=== PATIENT | male | born 1970 | race Caucasian/White ===

== ENCOUNTER 2016-09-23 11:20 | Observation (INO) ==
[2016-09-23] MEDS ORDERED: ASPIRIN 325 MG TABLET PO STA (11:46)
[2016-09-23] MEDS ORDERED: ENOXAPARIN 100 MG/ML SYRINGE SUBCUT STA (11:46)
[2016-09-23] MEDS ORDERED: ONDANSETRON 4 MG/2 ML VIAL IV PRN ×2 (11:46→14:45)
[2016-09-23] MEDS ORDERED: MORPHINE 2 MG/1 ML SYRINGE IV PRN (11:46)
--- NOTE | 2016-09-23 11:50 | EKG Report ---
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
[2016-09-23] MEDS ORDERED: ASPIRIN 325 MG TABLET ONE (11:55)
[2016-09-23] MEDS ORDERED: ENOXAPARIN 100 MG/ML SYRINGE SUBCUT ONE (11:55)
[2016-09-23] MEDS ORDERED: MORPHINE 2 MG/1 ML SYRINGE ONE (11:55)
[2016-09-23] MEDS ORDERED: ONDANSETRON 4 MG/2 ML VIAL ONE (11:55)
--- NOTE | 2016-09-23 11:57 | Emergency Department Note ---
Marino Fay Brooke, am scribing for, and in the presence of, Nas Gómez MD 11:55 . Dalia Fay James D, MD, personally performed the services described in this documentation, ascribed by Jessika Pichardo in my presence, and it is both accurate and complete . Arrival - Arrival Chief Complaint: Chest Pain Stated Complaint: chest pain ED Nursing Triage Note: Onset of chest pain 4-6 weeks ago. Pain increased this morning. +Nausea. CABG at age 33. Pain is worse on exertion and bending over. Mode of Arrival: Ambulatory Limitations: No Limitations Source: Patient, RN Notes Reviewed Time Seen by Provider: 09/23/16 11:46 - History of Present Illness HPI Narrative: Patient is a 45 year old male who presents to the ED with c/o intermittent chest pain that started about six weeks ago. Patient says the pain is located on the left side of his chest and he describes it as throbbing. Patient says he notices it when bending over but states after walking from the car to the ED, today, he had the throbbing pain. Patient denies any SOB, diaphoresis, nausea, melena, or leg edema. Patient had a bypass at age 33. He says then, his pain was located in the center of his chest and he had SOB and left arm numbness with it. He denies today's pain being anything like the pain that he had before his bypass. Patient says he has not seen a Applications Scientist in the last [address] Story was his Applications Scientist and Dr. Salas done his bypass. Patient says he took an ASA this morning. He has PMHx of dyslipidemia and NIDDM. Patient is not a smoker. Onset (ago): week(s) (6) Allergies/Adverse Reactions: Allergies Allergy/AdvReac Type Severity Reaction Status Date / Time No Known Allergies Allergy Unverified 09/23/16 11:36 Home Medications: Home Medications Medication Instructions Recorded Confirmed Type Albiglutide [Tanzeum] 30 mg SUBCUT SA 09/23/16 09/23/16 History Aspirin [Ecotrin] 325 mg PO DAILY 09/23/16 09/23/16 History Insulin Glargine,Hum.rec.anlog 300 unit SUBCUT BID 09/23/16 09/23/16 History [Toric Abrams] Levothyroxine Tab [Synthroid Tab] 50 mcg PO DAILY 09/23/16 09/23/16 History Metformin HCl 1,000 mg PO BID 09/23/16 09/23/16 History Multivitamin (Centrum) [Centrum 1 tablet PO DAILY 09/23/16 09/23/16 History Tab] [place]-3S/Dha/Epa/Fish Oil [Fish 1 each PO DAILY 09/23/16 09/23/16 History Oil 1,200 mg Softgel] Rosuvastatin Calcium [Crestor] 40 mg PO DAILY 09/23/16 09/23/16 History Review of System - Review of System 12 point system: reviewed and no additional remarkable complaints except as stated - Review of System Constitutional: Absent: diaphoresis, fever Respiratory: Absent: respiratory distress Cardiovascular: Present: chest pain (left side- throbbing) Skin: Absent: rash Neurological: Absent: numbness Medical,Surgical,& Family Hx - Medical History Endocrine: History of: Diabetes Mellitus (NIDDM) - Surgical History Cardiac Surgeries: Sugical HX of: Femoral-Popliteal Bypass Graft - Social History Smoking Status: Unknown if ever smoked Frequency of Alcohol Use: Unknown Type of Drug Use: Unknown Exam Vital Signs: Vital Signs Temperature 98.1 F 09/23/16 11:43 Pulse Rate 83 09/23/16 11:43 Respiratory Rate 20 09/23/16 11:43 Blood Pressure 116/86 09/23/16 11:43 O2 Sat by Pulse Oximetry 98 09/23/16 11:43 GENERAL: This is a well-nourished well-developed white male in no apparent distress. VITAL SIGNS: Reviewed HEENT: Head is atraumatic and normocephalic. Pupils are equal round react to light. Extraocular movements are intact. Oropharynx is benign with moist mucous membranes. NECK: Neck is soft and supple without tenderness. There are no masses. There is no lymphadenopathy. LUNGS: Lungs are clear to auscultation. Chest rises symmetrically. There is no chest wall tenderness. CV: Heart is regular rate and rhythm without murmurs rubs or gallops. ABDOMEN: Abdomen is soft, nontender to palpation. There are no abdominal abnormal masses palpated. There is no organomegaly. Bowel sounds are present and active. SKIN: Skin is warm and dry. No rash. EXTREMITIES: Patient has full range of motion without tenderness. There is no pedal edema. NEUROLOGIC: Awake alert and oriented 4. Cranial nerves II through XII are grossly intact. Motor is 5 over 5 in all extremities bilaterally. Course - Consultations Consultation #1: Discussed with cardiology. Patient will be admitted to their service. Time: 12:51 Results - Labs CBC & BMP: 09/23/16 11:58 09/23/16 11:58 Lab Results: I have reviewed the patients labs Labs: Laboratory Tests 09/23/16 11:58 Troponin I < 0.015 - EKG EKG results: interpreted by ERMD - Impressions EKG: Normal sinus rhythm with a rate of 84, incomplete right bundle branch block , nonspecific ST-T wave changes, normal axis per - Diagnostic Findings Procedure: Chest x-ray: image reviewed by me (Old median sternotomy, no cardiomegaly, no pleural effusions, no infiltrates.) Disposition Clinical Impression: Chest pain, Coronary artery disease, Diabetes mellitus, Hyperlipidemia Case discussed with: patient, patient's family Disposition: Still a Patient Condition: Stable
[2016-09-23 12:11] LABS: Basophils % 0.6 % (0.0-0.8); Eosinophils # 0.1 10*3/uL (0.0-0.87); Eosinophils % 1.5 % (0.00-10.9); Hemoglobin 13.9 GM/DL (14.0-18.0); Immature Granulocytes % 0.2 %; Immature Granulocytes Absolute 0.01 #; Lymphocytes # 1.4 10*3/uL (1.4-4.0); Lymphocytes % 30.5 % (21.2-54.2); Mean Corpuscular HGB Conc 33.1 GM/DL (32-36); Mean Corpuscular Hemoglobin 29 PG (27-34); Mean Platelet Volume 10.1 FL (9.6-12.0); Monocytes # 0.5 10*3/uL (0.11-0.8); Monocytes % 10.2 % (1.7-12.7); Neutrophils # 2.7 10*3/uL (1.4-7.4); Red Blood Count 4.83 MC/CUMM (3.8-5.5); White Blood Count 4.7 T/CUMM (4-12)
[2016-09-23 12:15] LABS: Platelet Count 97 T/CUMM (130-400)
[2016-09-23 12:17] LABS: Apearance,Urine Hazy (Clear); Bilirubin,Urine Negative (Negative); Blood, Urine NEGATIVE (Negative); Calcium Oxalate Crystals,Urine Occasional /HPF (Few); Glucose,Urine (UA) 500 mg/dL (Negative); Hyaline Casts,Urine 16 /LPF (0-3); Ketones,Urine Negative (Negative); Mucus,Urine Moderate /LPF (Occasional); Nitrite,Urine Negative (Negative); Protein,Urine 30 MG/DL; RBC,Urine 1 /HPF (0-4); Squamous Epithelial Cell,Urine Occasional /HPF (0-10); Urine Color Amber (Yellow); Urine Urobilinogen 0.2 EU/DL (0.2-1.0); WBC,Urine 2 /HPF (0-6)
[2016-09-23 12:24] LABS: Barbiturates Screen,Urine Negative (Negative); Benzodiazepines Screen,Urine Negative (Negative); Cannabinoid Screen,Urine Negative (Negative); Opiate Screen,Urine Negative (Negative); Phencyclidine Screen,Urine Negative (Negative)
[2016-09-23 12:24] LABS: INR 1.1; PT Patient Result 11.8 SECS
[2016-09-23 12:34] LABS: Platelet Estimate Decreased
[2016-09-23 12:43] LABS: Albumin 3.9 G/DL (3.4-5.0); Bilirubin,Total 0.4 MG/DL (0.2-1.0); Calcium 9.1 MG/DL (8.5-10.1); Potassium 3.8 MMOL/L (3.5-5.1); Total Protein 7.2 G/DL (6.4-8.3)
--- NOTE | 2016-09-23 13:16 | XRay Report ---
History: Chest pain Date: 09/23/2016 Study: Chest x-ray PA and lateral Comparison exam: No previous available The cardiac silhouette is not enlarged. There is no mediastinal mass. The patient is status post prior median sternotomy. Pulmonary vasculature is not engorged. The lungs and pleural spaces are clear. There is mild thoracic spondylosis. Impression: No acute cardiopulmonary process. Previous median sternotomy PROCEDURE INTERPRETED AT [facility] DEPARTMENT OF RADIOLOGY Final Report Signed by: Dr. Janine Bonilla
[2016-09-23] MEDS ORDERED: MAGNESIUM SULF RIDER 2 GM in PREMIX 1 EACH IV PRN (14:45)
[2016-09-23] MEDS ORDERED: ACETAMINOPHEN 325 MG TABLET PO PRN (14:45)
[2016-09-23] MEDS ORDERED: MAGNESIUM SULF RIDER 4 GM in PREMIX 1 EACH IV PRN (14:45)
[2016-09-23] MEDS ORDERED: ZALEPLON 5 MG CAPSULE PO PRN (14:45)
--- NOTE | 2016-09-23 15:41 | Cardiology History & Physical ---
Ntio Fay Rachel RN, am scribing for, and in the presence of, Sincere Story MD 15:41. Assessment and Plan - Time spent with patient Time spent with patient: Greater than 30 minutes (1) Chest pain Status: Acute Assessment and plan: Patient has history of known CAD with CABG approximately 12 years ago. Troponin has been negative times one and EKG revels no acute findings. Will admit to tele and continue to monitor troponin and EKG. If these remain stable will plan for cardiac stress test in the morning. If troponin bumps for EKG changes are noted, will opt for left heart cath. Will order echo. Current Visit: Yes (2) Coronary artery disease Status: Chronic Current Visit: Yes (3) Diabetes mellitus Status: Chronic Assessment and plan: Will resume home medications. Current Visit: Yes (4) Hyperlipidemia Status: Chronic Assessment and plan: Will check lipid panel. Current Visit: Yes History of Present Illness Chief complaint: Chest pain History of present illness: Mr. Blake is a 45 year old male with known coronary artery disease presented to [facility] for further evaluation of chest pain. He has been seen by Dr. Story in the remote past. He underwent heart catheterization by Dr. Story approximately 13 years ago it was noted to have severe coronary artery disease and CABG was recommended. He underwent CABG with Dr. Salas. Unfortunately, he has not followed up after discharge and has not seen cardiology in 13 years. He has cardiac risk factors significant for known coronary artery disease, diabetes, hyperlipidemia, obesity and sedentary lifestyle. He has a past medical history of hypothyroidism. Patient was in his usual state of health until approximately 1 month ago when he began to experience inner minute moderate nonradiating chest pain. He describes this pain as a sharp, throbbing pain located in his left upper chest. He tells me that this last anywhere from a few minutes to 1-2 hours. The symptoms seem to wax and wane. Patient denies shortness of breath, nausea, orthopnea, lower extremity swelling and palpitations/heart racing. He reports he 's had a cough for several weeks and was treated for sinusitis by his primary physician and this is improving. He also has been digging out side and thought maybe he strained something in his chest. Sometimes, the pain seems worse when he is up doing things, and other times it is worse when he bends over. However , sometimes it can happen spontaneously. This pain presents differently than the pain that he had before undergoing CABG. He denies fever, chills, chest pain that worsens with deep breath, orthopnea, PND, palpitations, dizziness, abdominal pain, nausea and melena. Patient was seen and examined in the ER. Patient is sitting in bed in no acute distress. Troponin has been negative times one. EKG does not reveal any acute findings. Will continue to monitor EKG and troponin. Patient is currently chest pain free. We will admit the patient and monitor on tele. Echo has been ordered. Home Medications Medication Instructions Recorded Confirmed Type Albiglutide [Tanzeum] 30 mg SUBCUT SA 09/23/16 09/23/16 History Aspirin [Ecotrin] 325 mg PO DAILY 09/23/16 09/23/16 History Insulin Glargine,Hum.rec.anlog 300 unit SUBCUT BID 09/23/16 09/23/16 History [Toujeo SoloStar] Levothyroxine Tab [Synthroid Tab] 50 mcg PO DAILY 09/23/16 09/23/16 History Metformin HCl 1,000 mg PO BID 09/23/16 09/23/16 History Multivitamin (Centrum) [Centrum 1 tablet PO DAILY 09/23/16 09/23/16 History Tab] [place]-3S/Dha/Epa/Fish Oil [Fish 1 each PO DAILY 09/23/16 09/23/16 History Oil 1,200 mg Softgel] Rosuvastatin Calcium [Crestor] 40 mg PO DAILY 09/23/16 09/23/16 History Allergies Allergy/AdvReac Type Severity Reaction Status Date / Time No Known Allergies Allergy Unverified 09/23/16 11:36 12 point system: reviewed and no additional remarkable complaints except as stated - Constitutional Constitutional: Absent: chills, fatigue, fever(s), headache(s), weakness, weight gain, weight loss - Cardiovascular Cardiovascular: Present: as per HPI. Absent: claudication, diaphoresis, dyspnea , dyspnea on exertion, edema, radiating jaw, neck or arm pain, lightheadedness, orthopnea, palpitations, PND - Respiratory Respiratory: Present: cough. Absent: dyspnea, hemoptysis, dyspnea on exertion, wheezing, snoring, pain on inspiration, change in phlegm color - Gastrointestinal Gastrointestinal: Present: vomiting. Absent: abdominal pain, change in bowel habits, coffee ground emesis, constipation, diarrhea, hematemesis, hematochezia , loose stools, melena, nausea - Neurological Neurological: Absent: dizziness, frequent falls, headache(s), syncope Medical,Surgical,& Family Hx - Medical History Cardio: History of: CAD Endocrine: History of: Diabetes Mellitus (NIDDM), Dyslipidemia - Surgical History Cardiac Surgeries: Sugical HX of: Femoral-Popliteal Bypass Graft, Cardiac Catheterization, Cardiac Surgery (CABG) - Social History Smoking Status: Unknown if ever smoked Frequency of Alcohol Use: Unknown Type of Drug Use: Unknown Cardiology Physical Exam - Constitutional Vitals: Vital Signs Temp Pulse Resp BP Pulse Ox 98.1 F 78 20 115/69 99 09/23/16 11:43 09/23/16 13:30 09/23/16 13:30 09/23/16 13:30 09/23/16 13:30 Intake and Output 09/22/16 09/23/16 09/23/16 22:59 06:59 14:59 Other: Weight 210 lb Patient Weight 09/24/16 06:59 Weight 210 lb Exam: General: Appears well developed, well nourished, no apparent distress HEENT: Normocephalic, atraumatic Neck: Supple Neck, Midline Trachea, No Bruit, No JVD Cardiac: Reg Rate and Rhythm, No Murmur, no gallop, no rub Lungs: Clear to auscultation, No Wheeze, Rales, Rhonchi Neuro: Cranial Nerve 2-12 Intact, Motor Function Grossly Intact Abdomen: Soft, Active Bowel Sounds, No Masses, No Pulsations/Bruits Skin: Normal color, no rash Extremities: No Clubbing, No Cyanosis, No Edema, Normal Upper Extr. Pulses Musculoskeletal: No acute abnormality noted Psychiatric: The patient does not appear to be anxious or depressed Result/EKG - Labs CBC & BMP: 09/23/16 11:58 09/23/16 11:58 Lab Results: I have reviewed the past 24 hour labs Labs: Laboratory Results - last 24 hr 09/23/16 09/23/16 09/23/16 11:58 11:58 11:58 WBC 4.7 RBC 4.83 Hgb 13.9 L Hct 42.0 MCV 87.0 MCH 29 MCHC 33.1 RDW 13.0 Plt Count 97 L MPV 10.1 Neut % (Auto) 57.0 Lymph % (Auto) 30.5 [place] % (Auto) 10.2 Eos % (Auto) 1.5 Baso % (Auto) 0.6 Neut # (Auto) 2.7 Lymph # (Auto) 1.4 [place] # (Auto) 0.5 Eos # (Auto) 0.1 Baso # (Auto) 0.0 Immature Gran % 0.2 Nucleated RBC % 0.0 Immature Gran # 0.01 Nucleated RBCs # 0.00 Platelet Estimate Decreased Morphology Comment INR 1.1 PT Patient/Control Mix 11.8 Circ Anticoag PTT Sodium 143 Potassium 3.8 Chloride 107 Carbon Dioxide 23 Anion Gap 16.8 H BUN 17 Creatinine 0.90 GFR Calculation 124 BUN/Creatinine Ratio 18.00 Glucose 188 H Calculated Osmolality 291.0 Calcium 9.1 Total Bilirubin 0.40 AST 25 ALT 49 Alkaline Phosphatase 91 Troponin I Total Protein 7.2 Albumin 3.9 Globulin 3.3 Albumin/Globulin Ratio 1.1 Urine Color Urine Appearance Urine pH Ur Specific [place] Urine Protein Urine Glucose (UA) Urine Ketones Urine Blood Urine Nitrate Urine Bilirubin Urine Urobilinogen Urine Leukocytes Urine RBC Urine WBC Ur Squamous Epith Cells Calcium Oxalate Crystal Hyaline Casts Urine Mucus Ur Culture Indicated? Urine Opiates Screen Ur Barbiturates Screen Ur Phencyclidine Scrn U Amphetamine/Methamph U Benzodiazepines Scrn U Cocaine Metab Screen U Cannabinoids Screen 09/23/16 09/23/16 09/23/16 11:58 11:58 12:10 WBC RBC Hgb Hct MCV MCH MCHC RDW Plt Count MPV Neut % (Auto) Lymph % (Auto) [place] % (Auto) Eos % (Auto) Baso % (Auto) Neut # (Auto) Lymph # (Auto) [place] # (Auto) Eos # (Auto) Baso # (Auto) Immature Gran % Nucleated RBC % Immature Gran # Nucleated RBCs # Platelet Estimate Morphology Comment INR PT Patient/Control Mix Circ Anticoag PTT 26.7 Sodium Potassium Chloride Carbon Dioxide Anion Gap BUN Creatinine GFR Calculation BUN/Creatinine Ratio Glucose Calculated Osmolality Calcium Total Bilirubin AST ALT Alkaline Phosphatase Troponin I < 0.015 Total Protein Albumin Globulin Albumin/Globulin Ratio Urine Color Antonia Urine Appearance Hazy Urine pH 5.0 Ur Specific [place] 1.030 Urine Protein 30 Urine Glucose (UA) 500 Urine Ketones Negative Urine Blood Negative Urine Nitrate Negative Urine Bilirubin Negative Urine Urobilinogen 0.2 Urine Leukocytes Negative Urine RBC 1 Urine WBC 2 Ur Squamous Epith Cells Occasional Calcium Oxalate Crystal Occasional Hyaline Casts 16 Urine Mucus Moderate Ur Culture Indicated? Not indicated Urine Opiates Screen Ur Barbiturates Screen Ur Phencyclidine Scrn U Amphetamine/Methamph U Benzodiazepines Scrn U Cocaine Metab Screen U Cannabinoids Screen 09/23/16 12:10 WBC RBC Hgb Hct MCV MCH MCHC RDW Plt Count MPV Neut % (Auto) Lymph % (Auto) [place] % (Auto) Eos % (Auto) Baso % (Auto) Neut # (Auto) Lymph # (Auto) [place] # (Auto) Eos # (Auto) Baso # (Auto) Immature Gran % Nucleated RBC % Immature Gran # Nucleated RBCs # Platelet Estimate Morphology Comment INR PT Patient/Control Mix Circ Anticoag PTT Sodium Potassium Chloride Carbon Dioxide Anion Gap BUN Creatinine GFR Calculation BUN/Creatinine Ratio Glucose Calculated Osmolality Calcium Total Bilirubin AST ALT Alkaline Phosphatase Troponin I Total Protein Albumin Globulin Albumin/Globulin Ratio Urine Color Urine Appearance Urine pH Ur Specific [place] Urine Protein Urine Glucose (UA) Urine Ketones Urine Blood Urine Nitrate Urine Bilirubin Urine Urobilinogen Urine Leukocytes Urine RBC Urine WBC Ur Squamous Epith Cells Calcium Oxalate Crystal Hyaline Casts Urine Mucus Ur Culture Indicated? Urine Opiates Screen Negative Ur Barbiturates Screen Negative Ur Phencyclidine Scrn Negative U Amphetamine/Methamph Negative U Benzodiazepines Scrn Negative U Cocaine Metab Screen Negative U Cannabinoids Screen Negative - EKG EKG results: interpreted by me, sinus rhythm IJez Michael, MD, personally performed the services described in this documentation, ascribed by Anaya Beauchamp RN in my presence, and it is both accurate and complete 541 .
--- NOTE | 2016-09-23 15:49 | ECHO Report ---
Goldy Blake Exam Date: 09/23/2016 15:10 Referring Physician: Technologist: June Wilson Age: 45 Ht (in): Wt (lb): Gender: M Exam Location: [facility] Echo Indications: Chest Pain BP: / HR: Rhythm: Sinus Technical Quality: Technically difficult study IMPRESSIONS Left ventricular ejection fraction is estimated at 50-55 %. Mild concentric left ventricular hypertrophy with mild diastolic dysfunction. Mildly increased left atrial diameter. Trace mitral regurgitation. Mild aortic valve sclerosis without stenosis or regurgitation. Mild tricuspid valve regurgitation. Technically difficult study. MEASUREMENTS (Male / Female) Normal Values 2D ECHO LV Diastolic Diameter PLAX 4.5 cm 4.2 - 5.9 / 3.9 - 5.3 cm LV Systolic Diameter PLAX 1.9 cm LV Fractional Shortening PLAX 58.2 % IVS Diastolic Thickness 1.4 cm 0.6 - 1.0 / 0.6 - 0.9 cm LVPW Diastolic Thickness 1.1 cm 0.6 - 1.0 / 0.6 - 0.9 cm RV Internal Dim ED PLAX 3.1 cm Aortic Root Diameter 2.7 cm LA Systolic Diameter LX 4.8 cm 3.0 - 4.0 / 2.7 - 3.8 cm DOPPLER TR Peak Velocity 240.0 cm/s TR Peak Gradient 23.0 mmHg FINDINGS Left Ventricle Mild concentric left ventricular hypertrophy with mild diastolic dysfunction.. Left ventricular ejection fraction is estimated at 50-55 %. Right Ventricle Grossly normal right ventricle. Right Atrium Grossly normal right atrium. Left Atrium Mildly increased left atrial diameter. Mitral Valve Structurally normal mitral valve with trace mitral regurgitation. Aortic Valve Mild aortic valve sclerosis without stenosis or regurgitation. Tricuspid Valve Morphologically normal tricuspid valve. Mild tricuspid valve regurgitation. Tricuspid regurgitation velocities suggest a PAP of 23.0 mmHg + RAP. Pulmonic Valve Morphologically normal pulmonic valve. Pericardium No pericardial effusion. Aorta Normal size aortic root and proximal ascending aorta. Sincere Story (Electronically Signed) Final Date: 23 September 2016 15:48
[2016-09-23 15:59] LABS: Troponin I Only < 0.015 NG/ML (0.00-0.045)
[2016-09-23] MEDS: PANTOPRAZOLE 40 MG TABLET PO SCH (18:20)
[2016-09-23] MEDS: ENOXAPARIN 40 MG/0.4 ML SYRINGE SUBCUT SCH (18:20)
[2016-09-23] MEDS: metFORMIN 500 MG TABLET PO SCH (21:36)
[2016-09-24 00:15] LABS: Troponin I Only < 0.015 NG/ML (0.00-0.045)
[2016-09-24 06:31] LABS: Basophils % 0.4 % (0.0-0.8); Eosinophils # 0.1 10*3/uL (0.0-0.87); Eosinophils % 1.5 % (0.00-10.9); Hematocrit 43.6 VOL% (42.0-52.0); Hemoglobin 14.5 GM/DL (14.0-18.0); Immature Granulocytes % 0.2 %; Immature Granulocytes Absolute 0.01 #; Lymphocytes # 1.7 10*3/uL (1.4-4.0); Lymphocytes % 37.2 % (21.2-54.2); Mean Corpuscular HGB Conc 33.3 GM/DL (32-36); Mean Corpuscular Hemoglobin 28 PG (27-34); Mean Corpuscular Volume 85.5 FL (87-102); Mean Platelet Volume 10.5 FL (9.6-12.0); Monocytes # 0.4 10*3/uL (0.11-0.8); Monocytes % 9.5 % (1.7-12.7); Neutrophils # 2.3 10*3/uL (1.4-7.4); Neutrophils % 51.2 % (38.7-73.9); Platelet Count 113 T/CUMM (130-400); White Blood Count 4.5 T/CUMM (4-12)
--- NOTE | 2016-09-24 06:37 | EKG Report ---
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
[2016-09-24 06:59] LABS: Calcium 9.5 MG/DL (8.5-10.1); Magnesium 1.7 MG/DL (1.8-2.4); Osmolality,Calculated 284.1 MOS/KG (273-304); Potassium 3.8 MMOL/L (3.5-5.1); Risk Ratio 4.83
[2016-09-24 07:18] LABS: Troponin I Only < 0.015 NG/ML (0.00-0.045)
--- NOTE | 2016-09-24 08:43 | EKG Report ---
Stationary ECG Study 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
[2016-09-24] MEDS ORDERED: ASPIRIN EC 325 MG TABLET PO SCH (09:00)
[2016-09-24] MEDS ORDERED: OMEGA 3 ACID ETHYL ESTERS 1 GM CAPSULE PO SCH (09:00)
[2016-09-24] MEDS ORDERED: ROSUVASTATIN 20 MG TABLET PO SCH (09:00)
[2016-09-24] MEDS ORDERED: MULTIVITAMIN (CENTRUM) TABLET PO SCH (09:00)
[2016-09-24] MEDS ORDERED: LEVOTHYROXINE 50 MCG TABLET PO SCH (09:00)
[2016-09-24] MEDS: PANTOPRAZOLE 40 MG TABLET PO SCH (11:28)
[2016-09-24] MEDS: metFORMIN 500 MG TABLET PO SCH (11:29)
--- NOTE | 2016-09-24 12:23 | Cardiology Progress Note ---
Assessment and Plan - Time spent with patient Time spent with patient: Less than 30 minutes (1) Diminished pulses in lower extremity Status: Chronic Assessment and plan: See plan of care listed below Current Visit: Yes (2) Chest pain Status: Chronic Assessment and plan: See plan of care listed below Current Visit: Yes (3) Coronary artery disease Status: Chronic Assessment and plan: See plan of care listed below Current Visit: Yes (4) Diabetes mellitus Status: Chronic Assessment and plan: Continue current plan of care Current Visit: Yes (5) Hyperlipidemia Status: Chronic Assessment and plan: Continue current plan of care Current Visit: Yes Cardiology - PN: Subj Interval history: Mr. Blake is a 45 year old male with known coronary artery disease presented to [facility] for further evaluation of chest pain. He has been seen by Dr. Story in the remote past. He underwent heart catheterization by Dr. Story approximately 13 years ago it was noted to have severe coronary artery disease and CABG was recommended. He underwent CABG with Dr. Salas. Unfortunately, he has not followed up after discharge and has not seen cardiology in 13 years. He has cardiac risk factors significant for known coronary artery disease, diabetes, hyperlipidemia, obesity and sedentary lifestyle. He has a past medical history of hypothyroidism. Patient was in his usual state of health until approximately 1 month ago when he began to experience nonradiating chest pain. Overnight, he has had no real chest discomfort. He tells me that the chest discomfort is worse when he leans forward and actually feels better when he leans back and presses on the left side of his chest. He has not had a heart catheterization over 13 years. Patient has seen Dr. Story in the past but does not routinely follow up. Cardiac biomarkers have been negative, EKG unremarkable. Echocardiogram revealed EF 50-55% without significant valvular abnormality. N.p.o. for stress testing this morning ASSESSMENT/PLAN: 1. CHEST PAIN - atypical, scheduled for stress testing today. 2. KNOWN CAD S/P CABG -continue current plan of care 3. DYSLIPIDEMIA -continue lipid-lowering agent. Not at goal. LDL 134. I suspect patient is not taking his Crestor 40 and we will recheck his labs outpatient after 3 months. 4. DECREASED LEFT LOWER EXTREMITY PULSE -should the patient require cardiac catheterization, consider evaluating his lower extremity with arteriogram. However, patient is discharged home, outpatient ABIs will be ordered. 5. DIABETES - continue current plan of care Exam (Progress Note) - Constitutional Vitals: Period Temp Pulse Resp BP Sys/Linder Pulse Ox Last 24 Hr 96.1 F-99.2 F 70-95 18-20 114-139/62-69 80-100 Exam: General: [Appears well with no apparent distress.] [Pleasant and cooperative. ] [Appears comfortable.] HEENT: [PERRL, normocephalic, atraumatic. Mucous membranes moist. No jaundice noted. Conjunctiva moist and clear, sclerae anicteric] Neck: No JVD/HJR, no thyromegaly or lymphadenopathy noted. No carotid bruit appreciated Cardiac: [Regular rate and rhythm.] [No murmur rub or gallop.] Lungs: [Clear to auscultation without accessory muscle use to assist the respiratory pattern.] Not requiring oxygen Abdomen: Soft, bowel sounds normoactive. Nontender and nondistended. No abdominal bruit or thrill noted. No masses noted. Musculoskeletal: No fluid collection. Decreased range of motion is noted. Extremities: No clubbing, cyanosis noted. [ No edema noted.] Upper extremity pulses 2+. Left lower dorsalis pedis and posterior tibial pulse difficult to palpate. Right DP and PT 1+. Skin: No unusual lesions or rashes. No skin breakdown appreciated. Neuro: Awake, alert and oriented 3. Moves all extremities well without hemiparesis or paralysis. No essential tremor is appreciated. Result/EKG - Labs CBC & BMP: 09/24/16 06:03 09/24/16 06:03 Lab Results: I have reviewed the past 24 hour labs Labs: Laboratory Results - last 24 hr 09/23/16 09/23/16 09/23/16 15:14 18:44 21:03 WBC RBC Hgb Hct MCV MCH MCHC RDW Plt Count MPV Neut % (Auto) Lymph % (Auto) [place] % (Auto) Eos % (Auto) Baso % (Auto) Neut # (Auto) Lymph # (Auto) [place] # (Auto) Eos # (Auto) Baso # (Auto) Immature Gran % Nucleated RBC % Immature Gran # Nucleated RBCs # Sodium Potassium Chloride Carbon Dioxide Anion Gap BUN Creatinine GFR Calculation BUN/Creatinine Ratio Glucose POC Glucose 226 H Calculated Osmolality Calcium Magnesium Total Creatine Kinase 75 CK-MB (CK-2) 1.2 Troponin I < 0.015 < 0.015 Triglycerides Cholesterol LDL Cholesterol VLDL Cholesterol HDL Cholesterol Heart Disease Risk Ratio 09/23/16 09/24/16 09/24/16 23:13 06:03 06:03 WBC 4.5 RBC 5.10 Hgb 14.5 Hct 43.6 MCV 85.5 L MCH 28 MCHC 33.3 RDW 13.0 Plt Count 113 L MPV 10.5 Neut % (Auto) 51.2 Lymph % (Auto) 37.2 [place] % (Auto) 9.5 Eos % (Auto) 1.5 Baso % (Auto) 0.4 Neut # (Auto) 2.3 Lymph # (Auto) 1.7 [place] # (Auto) 0.4 Eos # (Auto) 0.1 Baso # (Auto) 0.0 Immature Gran % 0.2 Nucleated RBC % 0.0 Immature Gran # 0.01 Nucleated RBCs # 0.00 Sodium 142 Potassium 3.8 Chloride 104 Carbon Dioxide 26 Anion Gap 15.8 H BUN 16 Creatinine 0.70 GFR Calculation 137 BUN/Creatinine Ratio 22.00 H Glucose 115 H POC Glucose Calculated Osmolality 284.1 Calcium 9.5 Magnesium 1.7 L Total Creatine Kinase 70 CK-MB (CK-2) 1.0 Troponin I < 0.015 Triglycerides 190 H Cholesterol 198 LDL Cholesterol 134.0 VLDL Cholesterol 38.0 HDL Cholesterol 41 Heart Disease Risk Ratio 4.83 09/24/16 09/24/16 06:03 07:59 WBC RBC Hgb Hct MCV MCH MCHC RDW Plt Count MPV Neut % (Auto) Lymph % (Auto) [place] % (Auto) Eos % (Auto) Baso % (Auto) Neut # (Auto) Lymph # (Auto) [place] # (Auto) Eos # (Auto) Baso # (Auto) Immature Gran % Nucleated RBC % Immature Gran # Nucleated RBCs # Sodium Potassium Chloride Carbon Dioxide Anion Gap BUN Creatinine GFR Calculation BUN/Creatinine Ratio Glucose POC Glucose 104 Calculated Osmolality Calcium Magnesium Total Creatine Kinase 72 CK-MB (CK-2) < 1.0 Troponin I < 0.015 Triglycerides Cholesterol LDL Cholesterol VLDL Cholesterol HDL Cholesterol Heart Disease Risk Ratio - Diagnostic Findings Procedure: Chest x-ray: report reviewed by me - EKG EKG results: interpreted by me EKG shows: sinus rhythm
--- NOTE | 2016-09-24 12:40 | Event Note ---
Patient underwent nuclear stress testing this morning without difficulty. Achieved target heart rate without problems. Fair exercise tolerance noted. No EKG changes or arrhythmia noted. Of note, patient did have some claudication on the treadmill. Left lower extremity posterior tibial and dorsalis pedis pulse difficult to palpate. Right lower extremity posterior tibial and dorsalis pedis pulse is 1+. Patient may need to be considered for ABIs and eventually arteriogram. Patient now to nuclear medicine for final scan to be completed. Dr. Story to read, interpreted and advise.
[2016-09-24] MEDS: ENOXAPARIN 40 MG/0.4 ML SYRINGE SUBCUT SCH (15:19)
[2016-09-24 15:38] VITALS: BP 130/67
--- NOTE | 2016-09-24 15:41 | Nuclear Medicine Report ---
DATE OF STUDY: 09/24/2016 PROCEDURE: Nuclear stress test HISTORY: The patient is a 45-year-old male with known coronary artery disease and previous bypass s urgery. He presented with some chest pain symptoms and is undergoing a nuclear stress test for card iac risk stratification. The patient underwent a rest myocardial perfusion study after 10 mCi of Te chnetium-99 bound to Sestamibi. He then underwent a full Bandar protocol stress test. The patient e xercised for a total of 8 minutes and 13 seconds achieving a maximum heart rate of 154 beats per min [place], which is 89% of his age-predicted maximum. During exercise, the patient had no clinical or EKG signs of cardiac ischemia. Near peak exercise, he received a 30 mCi dose of Technetium-99 inbound to Sestamibi and repeat myocardial perfusion imaging was performed. Comparison of the stress and re st myocardial perfusion images shows no evidence of significant cardiac ischemia. Quantitative perf usion analysis confirms these findings with a sum stress score of 0 which is also consistent with no ischemia. Quantitative gated images calculated a left ventricular ejection fraction of 55% with no rmal segmental wall motion. IMPRESSION: 1. 1. CLINICALLY AND ELECTRICALLY NEGATIVE MAXIMAL FULL BANDAR PROTOCOL STRESS TEST. 2. I SEE NO CONVINCING EVIDENCE OF CARDIAC ISCHEMIA ON PERFUSION IMAGING. 3. LEFT VENTRICULAR EJECTION FRACTION IS NORMAL. 4. OF NOTE, THE PATIENT DID DEVELOP SOME CLAUDICATION-TYPE SYMPTOMS IN HIS LEGS WHEN WALKING. A NO NINVASIVE EVALUATION OF PERIPHERAL VASCULAR FUNCTION MAY BE IN ORDER. CONCLUSION: These results are most consistent with a low risk test as described above. \ Procedure performed and interpreted at [facility] Department of Radiology.
--- NOTE | 2016-09-24 15:55 | Discharge Summary ---
Hospital Course - Hospital Course Hospital Course: Mr. Blake is a 45 year old male with known coronary artery disease presented to [facility] for further evaluation of chest pain. He has been seen by Dr. Story in the remote past. He underwent heart catheterization by Dr. Story approximately 13 years ago it was noted to have severe coronary artery disease and CABG was recommended. He underwent CABG with Dr. Salas. Unfortunately, he has not followed up after discharge and has not seen cardiology in 13 years. He has cardiac risk factors significant for known coronary artery disease, diabetes, hyperlipidemia, obesity and sedentary lifestyle. He has a past medical history of hypothyroidism. He presented to the emergency department with left-sided chest pain. Worse bending over and pressing on the left chest wall actually improved the discomfort. He was hospitalized overnight and underwent elective stress testing this morning. Identified was no evidence of reversible ischemia. His cardiac biomarkers remained negative and EKG unremarkable. Of note, patient did have decreased pulse in the left lower extremity and had complaints concerning for claudication while on the treadmill during stress testing. We discussed the possibility of further workup outpatient and he is agreeable. Patient's LDL noted to be 134, not at goal. He assures me he is taking generic Crestor 40 mg each evening without fail. I will add fenofibrate to his medication regimen and follow-up with fasting lipid profile in approximately 3 months. Echocardiogram revealed EF 50-55% without significant valvular abnormality. Having felt him at maximal medical therapy, patient is being discharged home in stable condition. I encouraged the patient to keep a routine follow-up appointments with Dr. Story and he and his both assure me that he will do such. He is being given a 2-3 week follow-up with Dr. Story. In the meantime , I will order ABIs at [facility] [place] [facility] to be performed prior to the visit due to complaints of claudication, decreased pulse left lower extremity. He will be treated for noncardiac chest pain to include musculoskeletal component. I will give him the following regimen for treatment of his noncardiac chest pain: Neurontin 100 mg orally 3 times daily 1 week Tramadol 50 mg orally twice daily 1 week Acetaminophen 325 mg orally twice daily 1 week In addition to his preadmission medications, he will be given a prescription for fenofibrate 145mg orally daily in addition to Crestor 40mg orally each evening. Patient's blood pressure will not allow introduction of SILVIA-Inhibitor or Betablocker. - Time spent with patient Time with patient DS: Greater than 30 minutes Diagnosis - Discharge Diagnosis (1) Diminished pulses in lower extremity Status: Chronic (2) Chest pain Status: Chronic (3) Coronary artery disease Status: Chronic (4) Diabetes mellitus Status: Chronic (5) Hyperlipidemia Status: Chronic Specialty Discharge - Follow Up or Referrals Follow up with: Sincere Story MD [Physician] - (3 weeks. Please order ABIs for 1-2 weeks at [facility] RE: claudication and decreased pulse left lower extremity) Discharge Plan - Discharge Data Disposition: Disch To Home/Self Care Condition at Discharge: Stable Discharge Diet: heart healthy Activity: resume usual activities as tolerated Hygiene: no restrictions Weight Bearing at Discharge: full weight bearing Driving: no restrictions Contact your physician if you experience:: fever over 101, Difficulty voiding, Redness or swelling, Nausea/Vomiting, Shortness of breath, Bleeding, pain uncontrolled by pain medications - Discharge Medications New [place]apentin Cap/Tab [Neurontin Cap/Tab] 100 mg PO TID #21 capsule Tramadol HCl [Tramadol Tab] 50 mg PO BID #14 tablet Fenofibrate [Tricor] 145 mg PO DAILY #30 tablet Pantoprazole Tab [Protonix Tab] 40 mg PO DAILY #30 tablet Continue Aspirin [Ecotrin] 325 mg PO DAILY Insulin Glargine,Hum.rec.anlog [Toujeo SoloStar] 300 unit SUBCUT BID Levothyroxine Tab [Synthroid Tab] 50 mcg PO DAILY Multivitamin (Centrum) [Centrum Tab] 1 tablet PO DAILY [place]-3S/Dha/Epa/Fish Oil [Fish Oil 1,200 mg Softgel] 1 each PO DAILY Rosuvastatin Calcium [Crestor] 40 mg PO DAILY Albiglutide [Tanzeum] 30 mg SUBCUT SA Metformin HCl 1,000 mg PO BID - Follow Up or Referral - Forms/Instructions Additional Discharge Instructions: Please tell patient to take Tylenol 325mg orally BID for one week. Exam - Constitutional Vitals: Period Temp Pulse Resp BP Sys/Linder Pulse Ox Last 24 Hr 96.1 F-99.2 F 70-95 18-20 114-139/62-79 80-100 Exam: General: [Appears well with no apparent distress.] [Pleasant and cooperative. ] [Appears comfortable.] HEENT: [PERRL, normocephalic, atraumatic. Mucous membranes moist. No jaundice noted. Conjunctiva moist and clear, sclerae anicteric] Neck: No JVD/HJR, no thyromegaly or lymphadenopathy noted. No carotid bruit appreciated Cardiac: [Regular rate and rhythm.] [No murmur rub or gallop.] Lungs: [Clear to auscultation without accessory muscle use to assist the respiratory pattern.] Not requiring oxygen Abdomen: Soft, bowel sounds normoactive. Nontender and nondistended. No abdominal bruit or thrill noted. No masses noted. Musculoskeletal: No fluid collection. Decreased range of motion is noted. Extremities: No clubbing, cyanosis noted. [ No edema noted.] Upper extremity pulses 2+. Left lower dorsalis pedis and posterior tibial pulse difficult to palpate. Right DP and PT 1+. Skin: No unusual lesions or rashes. No skin breakdown appreciated. Neuro: Awake, alert and oriented 3. Moves all extremities well without hemiparesis or paralysis. No essential tremor is appreciated. Discharge Results Labs on day of discharge: Labs from last 24 hours 09/24/16 09/24/16 09/24/16 12:00 07:59 06:03 WBC RBC Hgb Hct MCV MCH MCHC RDW Plt Count MPV Neut % (Auto) Lymph % (Auto) [place] % (Auto) Eos % (Auto) Baso % (Auto) Neut # (Auto) Lymph # (Auto) [place] # (Auto) Eos # (Auto) Baso # (Auto) Immature Gran % Nucleated RBC % Immature Gran # Nucleated RBCs # Sodium Potassium Chloride Carbon Dioxide Anion Gap BUN Creatinine GFR Calculation BUN/Creatinine Ratio Glucose POC Glucose 162 H 104 Calculated Osmolality Calcium Magnesium Total Creatine Kinase 72 CK-MB (CK-2) < 1.0 Troponin I < 0.015 Triglycerides Cholesterol LDL Cholesterol VLDL Cholesterol HDL Cholesterol Heart Disease Risk Ratio 09/24/16 09/24/16 09/23/16 06:03 06:03 23:13 WBC 4.5 RBC 5.10 Hgb 14.5 Hct 43.6 MCV 85.5 L MCH 28 MCHC 33.3 RDW 13.0 Plt Count 113 L MPV 10.5 Neut % (Auto) 51.2 Lymph % (Auto) 37.2 [place] % (Auto) 9.5 Eos % (Auto) 1.5 Baso % (Auto) 0.4 Neut # (Auto) 2.3 Lymph # (Auto) 1.7 [place] # (Auto) 0.4 Eos # (Auto) 0.1 Baso # (Auto) 0.0 Immature Gran % 0.2 Nucleated RBC % 0.0 Immature Gran # 0.01 Nucleated RBCs # 0.00 Sodium 142 Potassium 3.8 Chloride 104 Carbon Dioxide 26 Anion Gap 15.8 H BUN 16 Creatinine 0.70 GFR Calculation 137 BUN/Creatinine Ratio 22.00 H Glucose 115 H POC Glucose Calculated Osmolality 284.1 Calcium 9.5 Magnesium 1.7 L Total Creatine Kinase 70 CK-MB (CK-2) 1.0 Troponin I < 0.015 Triglycerides 190 H Cholesterol 198 LDL Cholesterol 134.0 VLDL Cholesterol 38.0 HDL Cholesterol 41 Heart Disease Risk Ratio 4.83 09/23/16 09/23/16 09/23/16 21:03 18:44 15:14 WBC RBC Hgb Hct MCV MCH MCHC RDW Plt Count MPV Neut % (Auto) Lymph % (Auto) [place] % (Auto) Eos % (Auto) Baso % (Auto) Neut # (Auto) Lymph # (Auto) [place] # (Auto) Eos # (Auto) Baso # (Auto) Immature Gran % Nucleated RBC % Immature Gran # Nucleated RBCs # Sodium Potassium Chloride Carbon Dioxide Anion Gap BUN Creatinine GFR Calculation BUN/Creatinine Ratio Glucose POC Glucose 226 H Calculated Osmolality Calcium Magnesium Total Creatine Kinase 75 CK-MB (CK-2) 1.2 Troponin I < 0.015 < 0.015 Triglycerides Cholesterol LDL Cholesterol VLDL Cholesterol HDL Cholesterol Heart Disease Risk Ratio - Imaging and Cardiology Cardiology Procedure: report reviewed by me Procedure: Chest x-ray: report reviewed by ct DS: Provider Date of admission: 09/23/16 14:45 Primary care physician: . No PCP Attending physician on admission: Sincere Story MD Consults: 09/23/16 14:56 Consult to Pharmacy [CONS] Routine Reason for Pharmacy Consult: Adjust Meds Renal Funct 09/23/16 15:02 Consult to Pharmacy [CONS] Routine Reason for Pharmacy Consult: Adjust Meds Renal Funct Discharging clinician: Gabriela Morel NP Expected date of discharge: 09/24/16
[2016-09-28] MEDS ORDERED: ALBIGLUTIDE 30 MG SUBCUT SCH (16:07)
== END 2016-09-24 17:40 | disposition home or self-care (01) ==
LOC: N.ED 11:20 → N.EDINP 11:20 → N.TELEN 17:56
PROVIDERS: ADMIT Internal Medicine Cardiovascular Disease; ATTEND Internal Medicine Cardiovascular Disease

== ENCOUNTER 2020-08-22 10:12 | Observation (INO) ==
[2020-08-22 10:50] LABS: Bilirubin,Urine Negative (Negative); Blood, Urine Negative (Negative); Glucose,Urine (UA) >=500 mg/dL (Negative); Ketones,Urine Negative (Negative); Mucus,Urine Occasional /LPF (Occasional); Nitrite,Urine Negative (Negative); Protein,Urine Negative; RBC,Urine 4 /HPF (0-4); Squamous Epithelial Cell,Urine Occasional /HPF (0-10); Urine Appearance CLEAR (Clear); Urine Color Yellow (Yellow); Urine Specific Gravity 1.032 (1.001-1.035); WBC,Urine 59 /HPF (0-6)
[2020-08-22 11:11] LABS: Basophils % 0.5 % (0.0-0.8); Eosinophils % 0.8 % (0.00-10.9); Hematocrit 34.7 VOL% (42.0-52.0); Hemoglobin 11.6 GM/DL (14.0-18.0); Immature Granulocytes % 0.8 %; Immature Granulocytes Absolute 0.03 #; Lymphocytes # 0.8 10*3/uL (1.4-4.0); Lymphocytes % 22.4 % (21.2-54.2); Mean Corpuscular HGB Conc 33.4 GM/DL (32-36); Mean Corpuscular Volume 90.1 FL (87-102); Mean Platelet Volume 10.4 FL (9.6-12.0); Monocytes % 17.3 % (1.7-12.7); Neutrophils % 58.2 % (38.7-73.9); Platelet Count 75 T/CUMM (130-400); Red Blood Count 3.85 MC/CUMM (3.8-5.5); Red Cell Distribution Width 12.9 % (9.3-17.3); White Blood Count 3.8 T/CUMM (4-12)
[2020-08-22 11:30] LABS: Eosinophils 1 % (0-10); Lymphocytes 26 % (20-55); Platelet Estimate Decreased; Segmented Neutrophils 63 % (50-85); Total Cells Counted 100
[2020-08-22 11:36] LABS: Albumin 3.2 G/DL (3.4-5.0); Bilirubin,Total 0.9 MG/DL (0.2-1.0); Calcium 8.9 MG/DL (8.5-10.1); Potassium 4.2 MMOL/L (3.5-5.1); Total Protein 6.7 G/DL (6.4-8.3)
[2020-08-22] MEDS ORDERED: cefTRIAXone 1,000 MG in SODIUM CHLORIDE 0.9% 100 ML IV STA (12:26)
[2020-08-22] MEDS ORDERED: cefTRIAXone 1,000 MG VIAL ONE (12:44)
[2020-08-22] MEDS ORDERED: SODIUM CHLORIDE 0.9% 1,000 ML IV STA (12:54)
[2020-08-22 13:00] LABS: INR 1.2; PT Patient Result 11.7 SECS (9.8-11.9); Partial Thromboplastin Time 24.9 SECS (23.9-33.8)
[2020-08-22] MEDS ORDERED: ONDANSETRON 4 MG/2 ML VIAL IV PRN (13:35)
[2020-08-22] MEDS ORDERED: GLUCAGON 1 MG VIAL IM PRN (13:35)
[2020-08-22] MEDS ORDERED: DEXTROSE 50% 25 GM/50 ML VIAL IV PRN (13:35)
[2020-08-22] MEDS: SODIUM CHLORIDE 0.9% 1,000 ML IV SCH (15:15)
[2020-08-22] MEDS: INSULIN LISPRO 100 UNIT/ML SUBCUT SCH ×2 (16:15→21:48)
[2020-08-23 03:01] LABS: Basophils % 0.5 % (0.0-0.8); Eosinophils % 0.5 % (0.00-10.9); Hematocrit 32.8 VOL% (42.0-52.0); Hemoglobin 10.9 GM/DL (14.0-18.0); Lymphocytes # 0.9 10*3/uL (1.4-4.0); Lymphocytes % 22.8 % (21.2-54.2); Mean Corpuscular HGB Conc 33.2 GM/DL (32-36); Mean Corpuscular Volume 88.2 FL (87-102); Mean Platelet Volume 9.7 FL (9.6-12.0); Monocytes % 16.3 % (1.7-12.7); Neutrophils % 59.9 % (38.7-73.9); Red Blood Count 3.72 MC/CUMM (3.8-5.5); Red Cell Distribution Width 12.7 % (9.3-17.3)
[2020-08-23 03:03] LABS: Platelet Count 67 T/CUMM (130-400)
[2020-08-23 03:21] LABS: Albumin 2.5 G/DL (3.4-5.0); Osmolality,Calculated 274.1 MOS/KG (273-304); Potassium 3.7 MMOL/L (3.5-5.1); Total Protein 6.1 G/DL (6.4-8.3)
[2020-08-23 03:46] LABS: Band Neutrophils 1 % (0-10); Eosinophils 1 % (0-10); Lymphocytes 19 % (20-55); Segmented Neutrophils 67 % (50-85)
[2020-08-23 03:47] LABS: Hypochromasia 1+; Platelet Estimate Decreased; Total Cells Counted 100
[2020-08-23] MEDS: SODIUM CHLORIDE 0.9% 1,000 ML IV SCH ×2 (04:34→17:26)
[2020-08-23] MEDS ORDERED: PANTOPRAZOLE 40 MG VIAL IV SCH (09:00)
[2020-08-23] MEDS: ACETAMINOPHEN 325 MG TABLET PO PRN ×2 (09:32→18:06)
[2020-08-23] MEDS: cefTRIAXone 1,000 MG in SYRINGE 1 EACH IV SCH (09:32)
[2020-08-23] MEDS: INSULIN LISPRO 100 UNIT/ML SUBCUT SCH ×4 (09:32→21:21)
[2020-08-23] MEDS ORDERED: OMEGA 3 ACID ETHYL ESTERS 1 GM CAPSULE PO SCH (11:00)
[2020-08-23] MEDS: FLUoxetine 20 MG CAPSULE PO SCH (11:33)
[2020-08-23] MEDS: PROPRANOLOL 10 MG TABLET PO SCH ×2 (11:33→21:20)
[2020-08-23] MEDS: MAGNESIUM OXIDE 400 MG TABLET PO SCH (11:33)
[2020-08-23] MEDS: FERROUS SULFATE 325 MG TABLET PO SCH (11:33)
[2020-08-23] MEDS: ASCORBIC ACID 500 MG TABLET PO SCH (11:33)
[2020-08-23] MEDS: PANTOPRAZOLE 40 MG TABLET PO SCH (21:20)
[2020-08-23] MEDS: INSULIN GLARGINE 100 UNIT/ML SUBCUT SCH (21:20)
[2020-08-24] MEDS: LEVOTHYROXINE 50 MCG TABLET PO SCH (05:48)
[2020-08-24] MEDS ORDERED: PANTOPRAZOLE 40 MG TABLET PO SCH (06:30)
[2020-08-24 06:40] LABS: Basophils % 0.3 % (0.0-0.8); Eosinophils # 0.1 10*3/uL (0.0-0.87); Eosinophils % 1.9 % (0.00-10.9); Hematocrit 32.5 VOL% (42.0-52.0); Hemoglobin 11.2 GM/DL (14.0-18.0); Immature Granulocytes % 0.3 %; Immature Granulocytes Absolute 0.01 #; Lymphocytes # 0.9 10*3/uL (1.4-4.0); Lymphocytes % 26.4 % (21.2-54.2); Mean Corpuscular HGB Conc 34.5 GM/DL (32-36); Mean Corpuscular Volume 87.4 FL (87-102); Mean Platelet Volume 10.3 FL (9.6-12.0); Monocytes % 22.7 % (1.7-12.7); Neutrophils % 48.4 % (38.7-73.9); Red Blood Count 3.72 MC/CUMM (3.8-5.5); Red Cell Distribution Width 12.7 % (9.3-17.3); White Blood Count 3.2 T/CUMM (4-12)
[2020-08-24 06:41] LABS: Platelet Count 64 T/CUMM (130-400)
[2020-08-24] MEDS: SODIUM CHLORIDE 0.9% 1,000 ML IV SCH (06:53)
[2020-08-24 07:04] LABS: Eosinophils 2 % (0-10); Lymphocytes 25 % (20-55); Platelet Estimate Decreased; Segmented Neutrophils 59 % (50-85); Total Cells Counted 100
[2020-08-24 07:11] LABS: Albumin 2.5 G/DL (3.4-5.0); Bilirubin,Total 1.2 MG/DL (0.2-1.0); Calcium 8.1 MG/DL (8.5-10.1); Potassium 3.3 MMOL/L (3.5-5.1); Total Protein 6.3 G/DL (6.4-8.3)
[2020-08-24] MEDS ORDERED: POTASSIUM CHLORIDE 20 MEQ TABLET PO ONE (07:37)
[2020-08-24] MEDS: INSULIN LISPRO 100 UNIT/ML SUBCUT SCH ×4 (08:41→21:03)
[2020-08-24] MEDS: FERROUS SULFATE 325 MG TABLET PO SCH (08:42)
[2020-08-24] MEDS: MAGNESIUM OXIDE 400 MG TABLET PO SCH (08:42)
[2020-08-24] MEDS: cefTRIAXone 1,000 MG in SYRINGE 1 EACH IV SCH (08:43)
[2020-08-24] MEDS: FLUoxetine 20 MG CAPSULE PO SCH (08:43)
[2020-08-24] MEDS: ASCORBIC ACID 500 MG TABLET PO SCH (08:43)
[2020-08-24] MEDS: PANTOPRAZOLE 40 MG TABLET PO SCH ×2 (08:43→21:02)
[2020-08-24] MEDS: PROPRANOLOL 10 MG TABLET PO SCH ×2 (08:43→21:02)
[2020-08-24] MEDS: INSULIN GLARGINE 100 UNIT/ML SUBCUT SCH (21:02)
[2020-08-25] MEDS: LEVOTHYROXINE 50 MCG TABLET PO SCH (05:47)
[2020-08-25 06:19] LABS: Basophils % 0.3 % (0.0-0.8); Eosinophils # 0.1 10*3/uL (0.0-0.87); Eosinophils % 3.3 % (0.00-10.9); Hemoglobin 12.4 GM/DL (14.0-18.0); Immature Granulocytes % 0.6 %; Immature Granulocytes Absolute 0.02 #; Lymphocytes % 29.1 % (21.2-54.2); Mean Corpuscular HGB Conc 33.5 GM/DL (32-36); Mean Corpuscular Volume 88.5 FL (87-102); Mean Platelet Volume 9.9 FL (9.6-12.0); Monocytes % 19.8 % (1.7-12.7); Neutrophils % 46.9 % (38.7-73.9); Platelet Count 80 T/CUMM (130-400); Red Blood Count 4.18 MC/CUMM (3.8-5.5); White Blood Count 3.3 T/CUMM (4-12)
[2020-08-25 06:43] LABS: Calcium 8.2 MG/DL (8.5-10.1); Osmolality,Calculated 272.8 MOS/KG (273-304); Potassium 3.4 MMOL/L (3.5-5.1)
[2020-08-25] MEDS ORDERED: POTASSIUM CHLORIDE 20 MEQ TABLET PO ONE (07:39)
[2020-08-25 08:00] VITALS: BP 119/70
[2020-08-25] MEDS: PROPRANOLOL 10 MG TABLET PO SCH (09:00)
[2020-08-25] MEDS: ASCORBIC ACID 500 MG TABLET PO SCH (09:00)
[2020-08-25] MEDS: FERROUS SULFATE 325 MG TABLET PO SCH (09:00)
[2020-08-25] MEDS: PANTOPRAZOLE 40 MG TABLET PO SCH (09:00)
[2020-08-25] MEDS: FLUoxetine 20 MG CAPSULE PO SCH (09:00)
[2020-08-25] MEDS: MAGNESIUM OXIDE 400 MG TABLET PO SCH (09:00)
[2020-08-25] MEDS: cefTRIAXone 1,000 MG in SYRINGE 1 EACH IV SCH (09:01)
[2020-08-25] MEDS: INSULIN LISPRO 100 UNIT/ML SUBCUT SCH (09:16)
[2020-08-25 10:41] LABS: Atypical Lymphocytes 1+; Band Neutrophils 1 % (0-10); Eosinophils 5 % (0-10); Hypochromasia Slight; Lymphocytes 22 % (20-55); Platelet Estimate Decreased; Segmented Neutrophils 45 % (50-85); Total Cells Counted 100
== END 2020-08-25 12:43 | disposition home or self-care (01) ==
LOC: N.EDINP 10:12 → N.ED 10:12 → N.5E 15:00
PROVIDERS: ADMIT Internal Medicine; ATTEND Internal Medicine